=== PATIENT | male | born 1965 | race Caucasian/White ===

== ENCOUNTER 2017-08-22 11:02 | Day surgery (SDC) | payer BC ==
[2017-08-19 08:32] VITALS: BMI 35.8
[~2017-08-22 11:02] MED LIST: LACTATED RINGERS 1,000 ML IV SCH
[2017-08-22] MEDS ORDERED: LIDOCAINE 1% 20 ML VIAL (10MG/ML) FOR IV START INTRADERMA ONE (12:01)
[2017-08-22 12:15] VITALS: RESP 16; TEMP 98
[2017-08-22 12:25] LABS: Glucose,Whole Blood 113 mg/dL (75-99)
[2017-08-22] MEDS ORDERED: PROPOFOL 10 MG/ML 20 ML VIAL IV ONE (12:30)
--- NOTE | 2017-08-22 12:55 | P.PCN ---
Date of Procedure: 08/22/17 Procedure(s) Performed: Procedure: Total colonoscopy. Preoperative diagnosis: Screening for neoplasia. Postoperative diagnosis: Exam within normal limits. Preparation: HalfLytely prep. Sedation: Was provided by anesthesia. Brief clinical history: The patient is a 52-year-old male who is scheduled for this evaluation for screening for neoplasia age being his risk factor. No family history of colon cancer. He has no abdominal complaints, bleeding or anemia. This would be his first colonoscopy. Procedure: With the patient on his left lateral decubitus position and after informed consent and adequate sedation, the perianal area was inspected and it did not show any fissures or fistulas. There were no masses felt on digital rectal examination. The Olympus CFQ 160L video colonoscope was then inserted in the rectum in the usual fashion and advanced to the cecum. The mucosa appeared healthy. No polyps or tumors were seen or any obvious diverticular disease or other pathology. I retroflexed the endoscope in the rectum before the endoscope was withdrawn. The patient tolerated the procedure well. Plan: The patient was reassured. He will follow up with you as planned and I recommended repeat exam in 10 years.
[2017-08-22 13:20] VITALS: BP 129/84; PULSE 74
== END 2017-08-22 13:38 | disposition home or self-care (01) ==
LOC: ORWHC2ENDO 11:02
DX: Z12.11 Encounter for screening for malignant neoplasm of colon (principal); I10 Essential (primary) hypertension; F17.200 Nicotine dependence, unspecified, uncomplicated
CPT/HCPCS: J2704; G0121

== ENCOUNTER 2019-06-28 16:20 | Emergency (ER) | payer BC ==
[2019-06-28] MEDS ORDERED: SODIUM CHLORIDE 0.9% 1,000 ML IV STA (18:08)
[2019-06-28] MEDS ORDERED: KETOROLAC 30 MG/ML 1 ML VIAL IVP STA (18:08)
--- NOTE | 2019-06-28 18:13 | ED ---
Abdominal Pain HPI - General Chief Complaint: Abdominal Pain Stated Complaint: Kidney stone Time Seen by Provider: 06/28/19 17:58 Source: patient Mode of arrival: ambulatory Limitations: no limitations - History of Present Illness Initial Comments: Patient is a 53-year-old male presenting to the emergency Department with complaints of right-sided flank pain that started yesterday. Patient states the pain started suddenly and has been sharp and stabbing in nature. He then describes right-sided groin pain started today. That pain is also been sharp in nature. He denies history of kidney stones. He denies any swelling of his scrotum or trauma. He denies any abdominal surgeries. He denies fever, chills, nausea, vomiting. He states she's never felt this Pain before. He denies hematuria. He has no other complaints at this time. He has no other pertinent past medical history. Upon arrival to the ER, his vital signs are stable. - Related Data Home Medications Medication Instructions Recorded Confirmed No Known Home Medications 08/19/17 08/22/17 Allergies Allergy/AdvReac Type Severity Reaction Status Date / Time No Known Allergies Allergy Verified 08/22/17 12:02 Review of Systems ROS Statement: Those systems with pertinent positive or pertinent negative responses have been documented in the HPI. ROS Other: All systems not noted in ROS Statement are negative. Past Medical History Past Medical History: No Reported History Additional Past Medical History / Comment(s): STATES EPISODE OF ELEVATED BLOOD SUGAR- HE QUIT DRINKING [place] DEW AND LOST 28 #-HAS NOT HAD BLOOD SUGAR RECHECKED AND DID NOT FILL MEDICATION PRESCRIPTION AT THAT TIME. History of Any Multi-Drug Resistant Organisms: None Reported Past Surgical History: No Surgical Hx Reported Additional Past Surgical History / Comment(s): WISDOM TEETH Additional Past Anesthesia/Blood Transfusion Reaction / Comment(s): NO ANESTHESIA HX Past Psychological History: No Psychological Hx Reported Smoking Status: Current every day smoker Past Alcohol Use History: Occasional Past Drug Use History: None Reported - Past Family History Mother Family Medical History: No Reported History General Exam - General Exam Comments Initial Comments: GENERAL: Well-appearing, well-nourished and in no acute distress. HEAD: Atraumatic, normocephalic. EYES: Pupils equal round and reactive to light, extraocular movements intact, sclera anicteric, conjunctiva are normal. ENT: TMs normal, nares patent, oropharynx clear without exudates. Moist mucous membranes. NECK: Normal range of motion, supple without lymphadenopathy or JVD. LUNGS: Breath sounds clear to auscultation bilaterally and equal. No wheezes rales or rhonchi. HEART: Regular rate and rhythm without murmurs, rubs or gallops. ABDOMEN: Mild right flank pain, right-sided abdominal pain, mild right groin pain. No right lower quadrant. Soft, normoactive bowel sounds. No guarding, no rebound. No masses appreciated. : Normal external exam, no swelling. Mild right groin pain EXTREMITIES: Normal range of motion, no pitting or edema. No clubbing or cyanosis. NEUROLOGICAL: Normal speech, normal gait. PSYCH: Normal mood, normal affect. SKIN: Warm, Dry, normal turgor, no rashes or lesions noted. Limitations: no limitations Course Vital Signs 06/28/19 16:48 Temperature 98.7 F Pulse Rate 73 Respiratory 20 Rate O2 Sat by Pulse 96 Oximetry Medical Decision Making - Medical Decision Making Patient is a 53-year-old male presenting with right-sided flank pain that sta rted yesterday. Also complaining of right groin pain. Vital signs are stable upon arrival. Lab work reveals slightly elevated bilirubin at 1.6, no other acute findings. Urine has 4+ glucose, no signs of infection. CT the abdomen shows a right hepatic lobe lesion, mild hepatomegaly, cholelithiasis without acute cholecystitis. No renal stones seen. She was given fluids, pain control and reports improvement in his symptoms. I discussed these findings with the patient. His symptoms are most likely related to biliary colic. Patient is stable for discharge at this time. Patient will be given referral to GI specialist. We discussed diet recommendations and increasing his fluid intake. He is in agreement with this plan of care. Patient will be sent home with a starter pack of tramadol. Return parameters were discussed with the patient he verbalizes understanding. Case discussed with Dr. Samayoa. - Lab Data Result diagrams: 06/28/19 18:28 06/28/19 18:28 Lab Results 06/28/19 06/28/19 06/28/19 Range/Units 18:28 18:28 18:28 WBC 6.6 (3.8-10.6) k/uL RBC 5.28 (4.30-5.90) m/uL Hgb 15.9 (13.0-17.5) gm/dL Hct 46.0 (39.0-53.0) % MCV 87.2 (80.0-100.0) fL MCH 30.1 (25.0-35.0) pg MCHC 34.5 (31.0-37.0) g/dL RDW 12.9 (11.5-15.5) % Plt Count 152 (150-450) k/uL Neutrophils % 60 % Lymphocytes % 26 % Monocytes % 7 % Eosinophils % 2 % Basophils % 2 % Neutrophils # 4.0 (1.3-7.7) k/uL Lymphocytes # 1.7 (1.0-4.8) k/uL Monocytes # 0.4 (0-1.0) k/uL Eosinophils # 0.1 (0-0.7) k/uL Basophils # 0.1 (0-0.2) k/uL PT 11.7 (9.0-12.0) sec INR 1.1 (<1.2) APTT 23.8 (22.0-30.0) sec Sodium 136 L (137-145) mmol/L Potassium 4.2 (3.5-5.1) mmol/L Chloride 100 (98-107) mmol/L Carbon Dioxide 25 (22-30) mmol/L Anion Gap 11 mmol/L BUN 16 (9-20) mg/dL Creatinine 0.73 (0.66-1.25) mg/dL Est GFR (CKD-EPI)AfAm >90 (>60 ml/min/1.73 sqM) Est GFR (CKD-EPI)NonAf >90 (>60 ml/min/1.73 sqM) Glucose 154 H (74-99) mg/dL Calcium 8.8 (8.4-10.2) mg/dL Total Bilirubin 1.6 H (0.2-1.3) mg/dL AST 51 (17-59) U/L ALT 75 H (4-49) U/L Alkaline Phosphatase 59 (38-126) U/L Total Protein 7.5 (6.3-8.2) g/dL Albumin 4.4 (3.5-5.0) g/dL Urine Color Urine Appearance (Clear) Urine pH (5.0-8.0) Ur Specific [place] (1.001-1.035) Urine Protein (Negative) Urine Glucose (UA) (Negative) Urine Ketones (Negative) Urine Blood (Negative) Urine Nitrite (Negative) Urine Bilirubin (Negative) Urine Urobilinogen (<2.0) mg/dL Ur Leukocyte Esterase (Negative) Urine RBC (0-5) /hpf Urine WBC (0-5) /hpf Ur Squamous Epith Cells (0-4) /hpf Urine Mucus (None) /hpf 06/28/19 Range/Units 18:38 WBC (3.8-10.6) k/uL RBC (4.30-5.90) m/uL Hgb (13.0-17.5) gm/dL Hct (39.0-53.0) % MCV (80.0-100.0) fL MCH (25.0-35.0) pg MCHC (31.0-37.0) g/dL RDW (11.5-15.5) % Plt Count (150-450) k/uL Neutrophils % % Lymphocytes % % Monocytes % % Eosinophils % % Basophils % % Neutrophils # (1.3-7.7) k/uL Lymphocytes # (1.0-4.8) k/uL Monocytes # (0-1.0) k/uL Eosinophils # (0-0.7) k/uL Basophils # (0-0.2) k/uL PT (9.0-12.0) sec INR (<1.2) APTT (22.0-30.0) sec Sodium (137-145) mmol/L Potassium (3.5-5.1) mmol/L Chloride (98-107) mmol/L Carbon Dioxide (22-30) mmol/L Anion Gap mmol/L BUN (9-20) mg/dL Creatinine (0.66-1.25) mg/dL Est GFR (CKD-EPI)AfAm (>60 ml/min/1.73 sqM) Est GFR (CKD-EPI)NonAf (>60 ml/min/1.73 sqM) Glucose (74-99) mg/dL Calcium (8.4-10.2) mg/dL Total Bilirubin (0.2-1.3) mg/dL AST (17-59) U/L ALT (4-49) U/L Alkaline Phosphatase (38-126) U/L Total Protein (6.3-8.2) g/dL Albumin (3.5-5.0) g/dL Urine Color Yellow Urine Appearance Clear (Clear) Urine pH 6.0 (5.0-8.0) Ur Specific [place] 1.029 (1.001-1.035) Urine Protein 1+ H (Negative) Urine Glucose (UA) 4+ H (Negative) Urine Ketones Negative (Negative) Urine Blood Trace H (Negative) Urine Nitrite Negative (Negative) Urine Bilirubin Negative (Negative) Urine Urobilinogen 4.0 (<2.0) mg/dL Ur Leukocyte Esterase Negative (Negative) Urine RBC 1 (0-5) /hpf Urine WBC 1 (0-5) /hpf Ur Squamous Epith Cells 1 (0-4) /hpf Urine Mucus Few H (None) /hpf Disposition Clinical Impression: Biliary colic, Abdominal pain Disposition: HOME SELF-CARE Condition: Stable Instructions (If sedation given, give patient instructions): Biliary Colic (ED) Additional Instructions: Please return to the Emergency Department if symptoms worsen or any other concerns. May take Tylenol or Motrin for symptom control. Start with clear liquid diet. Limit fatty foods. Increase water intake. Follow up with GI specialist as discussed. Is patient prescribed a controlled substance at d/c from ED?: No Referrals: Tiffanie Bhagat MD [Primary Care Provider] - 1-2 days Essie Bowling MD [STAFF PHYSICIAN] - 1-2 days
[2019-06-28 18:49] LABS: ALT 75 U/L (4-49); AST 51 U/L (17-59); African American GFR (CKD) >90 (>60 ml/min/1.73 sqM); Albumin 4.4 g/dL (3.5-5.0); Alkaline Phosphatase 59 U/L (38-126); Anion Gap 11 mmol/L; Basophils # (A) 0.1 k/uL (0-0.2); Basophils % (A) 2 %; Blood Urea Nitrogen 16 mg/dL (9-20); Calcium 8.8 mg/dL (8.4-10.2); Carbon Dioxide 25 mmol/L (22-30); Chloride 100 mmol/L (98-107); Eosinophils # (A) 0.1 k/uL (0-0.7); Eosinophils % (A) 2 %; Glucose 154 mg/dL (74-99); HGB 15.9 gm/dL (13.0-17.5); Lymphocytes # (A) 1.7 k/uL (1.0-4.8); Lymphocytes % (A) 26 %; MCH 30.1 pg (25.0-35.0); MCHC 34.5 g/dL (31.0-37.0); MCV 87.2 fL (80.0-100.0); Mean Platelet Volume 8.8; Monocytes # (A) 0.4 k/uL (0-1.0); Monocytes % (A) 7 %; Neutrophils % (A) 60 %; Non-African American GFR(CKD) >90 (>60 ml/min/1.73 sqM); Platelet Count 152 k/uL (150-450); Potassium 4.2 mmol/L (3.5-5.1); RBC 5.28 m/uL (4.30-5.90); RDW 12.9 % (11.5-15.5); Sodium 136 mmol/L (137-145); Total Bilirubin 1.6 mg/dL (0.2-1.3); Total Protein 7.5 g/dL (6.3-8.2); WBC 6.6 k/uL (3.8-10.6)
[2019-06-28 18:54] LABS: Appearance,Urine Clear (Clear); Bilirubin,Urine Negative (Negative); Blood,Urine Trace (Negative); Color,Urine Yellow; Glucose,Urine (UA) 4+ (Negative); Ketones,Urine Negative (Negative); Leukocyte Esterase,Urine Negative (Negative); Mucus,Urine Few /hpf; Nitrite,Urine Negative (Negative); Protein,Urine 1+ (Negative); RBC,Urine 1 /hpf (0-5); Specific Gravity,Urine 1.029 (1.001-1.035); Squamous Epithelial Cell,Urine 1 /hpf (0-4); WBC,Urine 1 /hpf (0-5)
[2019-06-28 19:03] LABS: INR 1.1 (<1.2); Partial Thromboplastin Time 23.8 sec (22.0-30.0); Prothrombin Time 11.7 sec (9.0-12.0)
[2019-06-28] MEDS ORDERED: MORPHINE SULFATE 4 MG/ML SYRINGE IVP STA (19:13)
--- NOTE | 2019-06-28 19:58 | CT ---
EXAMINATION TYPE: CT abdomen pelvis wo con DATE OF EXAM: 06/28/2019 COMPARISON: There are no comparison imaging studies. HISTORY: Right sided flank pain. CT DLP: 1115.1 mGycm Automated exposure control for dose reduction was used. TECHNIQUE: Helical acquisition of images was performed from the lung bases through the pelvis. FINDINGS: Within the limitations of noncontrast CT the following observations are made. LUNG BASES: No acute findings. LIVER: No definite acute findings. However, 2 cm right hepatic hypodense lesion noted laterally, cent ered just below the level of the shaista hepatis. Also, there is mild-plus hepatomegaly. BILIARY: Cholelithiasis is noted. Gallbladder otherwise unremarkable. No extrahepatic or intrahepatic biliary dilation. PANCREAS: No significant necrotic or pancreatic ductal abnormality is seen. SPLEEN: No focal abnormality. Mild splenomegaly noted. ADRENALS: No significant abnormality is seen. KIDNEYS: No hydronephrosis or hydroureter or calcifications, and no soft tissue mass. Multifocal renal cystic masses are noted, likely benign and greater on the right. PERITONEAL CAVITY: No pneumoperitoneum and no peritoneal fluid. RETROPERITONEAL ADENOPATHY: None visualized REPRODUCTIVE ORGANS: No significant abnormality is seen URINARY BLADDER: No significant abnormality is seen. PELVIC ADENOPATHY: None visualized. OSSEOUS STRUCTURES: No significant abnormality is seen. BOWEL: No significant abnormality is seen. IMPRESSION: NEGATIVE FOR RIGHT OBSTRUCTIVE UROPATHY OR OTHER CT CORRELATE FOR THE PATIENT'S RIGHT-VIRGIE ED FLANK PAIN. Incidental: Bilateral renal findings and right hepatic lobe finding, with mild plus hepatosplenomegal y. Nonurgent abdomen/renal MRI without and with contrast is advised to further characterize these fin dings.
[2019-06-28] MEDS ORDERED: traMADol 50 MG STARTER PACK 3 TAB BTL PO STA (20:21)
[2019-06-28 21:07] VITALS: BP 125/81; PULSE 72; RESP 18; TEMP 97.9
== END 2019-06-28 21:07 | disposition home or self-care (01) ==
LOC: EC 16:20
DX: K80.50 Calculus of bile duct without cholangitis or cholecystitis without obstruction (principal); R16.0 Hepatomegaly, not elsewhere classified; F17.200 Nicotine dependence, unspecified, uncomplicated
CPT/HCPCS: 36415; 80053; 85025; 85610; 85730; 81001; 74176; 99284; 96374; 96375; 96361 ×2; J2270; J1885

== ENCOUNTER → 2019-08-11 | Outpatient (CLI) | payer BC ==
--- NOTE | 2019-08-12 05:36 | MR ---
EXAMINATION TYPE: MR liver wo/w con DATE OF EXAM: 08/11/2019 COMPARISON: HISTORY: Lesion of liver Flank pain CONTRAST: Standard multiplanar, multisequence MRI departmental protocol utilizing 11 mL intravenous Gadavist ga dolinium contrast. There is sharply marginated rounded 17 x 12 mm high signal focus in the lateral aspect right lobe louisa er consistent with simple hepatic cyst. This corresponds to the hypodense area on the recent CT scan in the right lobe of the liver. There are bilateral renal cortical cysts. The largest is right kidney posterior and lateral and measu res 3.3 cm. There is no evidence of a solid renal mass. There is no hydronephrosis. The spleen is intact. Stomach appears normal. There is no high-grade mass. The pancreatic duct appear s normal. There are tiny cysts in the tail of the pancreas consistent with tiny pseudocysts that jocelyn ure 2 to 3 mm. There are small filling defects in the dependent gallbladder. The bile ducts are not d ilated. There is no adrenal mass. There is no evidence of solid pancreatic mass. The contrast images show no pathologic enhancement. There is no retroperitoneal adenopathy. There is no ascites. There is no evidence of pleural fluid. D elayed images show no pathologic enhancement. There is patency of the portal venous system. IMPRESSION: Simple cyst in the lateral right lobe of the liver. Additional smaller cysts in the anterior left lob e and right lobe of the liver measure up to 1 cm. Multiple bilateral renal cortical cysts no evidence of a solid renal mass. Cholelithiasis.
== END | disposition home or self-care (01) ==
LOC: RADMRIMAIN 11:59
PROVIDERS: ATTEND Internal Medicine Gastroenterology
DX: K76.89 Other specified diseases of liver (principal); K80.20 Calculus of gallbladder without cholecystitis without obstruction
CPT/HCPCS: 74183; A9585

== ENCOUNTER → 2019-08-14 | Outpatient (CLI) | payer BC ==
[2019-08-14 17:46] LABS: Basophils % (A) 0 %; Eosinophils # (A) 0.3 k/uL (0-0.7); Eosinophils % (A) 3 %; HCT 51.6 % (39.0-53.0); HGB 17.4 gm/dL (13.0-17.5); Lymphocytes # (A) 2.9 k/uL (1.0-4.8); Lymphocytes % (A) 30 %; MCH 30.4 pg (25.0-35.0); MCHC 33.7 g/dL (31.0-37.0); MCV 90.3 fL (80.0-100.0); Mean Platelet Volume 8.8; Monocytes # (A) 0.5 k/uL (0-1.0); Monocytes % (A) 5 %; Neutrophils # (A) 5.9 k/uL (1.3-7.7); Neutrophils % (A) 60 %; Platelet Count 192 k/uL (150-450); RBC 5.71 m/uL (4.30-5.90); WBC 9.9 k/uL (3.8-10.6)
[2019-08-14 23:43] LABS: African American GFR (CKD) 98.5 (60.0-200.0); Albumin 4.7 g/dL (3.80-4.90); Albumin/Globulin Ratio 1.96 (1.60-3.17); Anion Gap 8.2 mmol/L (4.00-12.00); Bilirubin, Conjugated 0.3 mg/dL (0.20-0.40); Bilirubin,Unconjugated 0.3 mg/dL; Calcium 9.4 mg/dL (8.7-10.3); Carbon Dioxide 27.8 mmol/L (21.6-31.8); Globulin 2.4 g/dL (1.6-3.3); Non-African American GFR(CKD) 84.9 (60.0-200.0); Potassium 4.5 mmol/L (3.5-5.5); Total Bilirubin 0.6 mg/dL (0.3-1.2); Total Protein 7.1 g/dL (6.2-8.2)
== END | disposition home or self-care (01) ==
LOC: LABWHC1 16:34
PROVIDERS: ATTEND Internal Medicine Gastroenterology
DX: K76.9 Liver disease, unspecified (principal); R94.5 Abnormal results of liver function studies
CPT/HCPCS: 36415; 80053; 82248; 85025

== ENCOUNTER 2023-10-07 16:46 | Emergency (ER) | payer BC ==
--- NOTE | 2023-10-07 17:20 | ED ---
General Adult HPI - General Chief complaint: Recheck/Abnormal Lab/Rx Stated complaint: abd pain-gallbladder Time Seen by Provider: 10/07/23 17:06 Source: patient, RN notes reviewed, old records reviewed Mode of arrival: ambulatory Limitations: no limitations - History of Present Illness Initial comments: 58-year-old male presenting with chief complaint of abdominal pain, concern for gallbladder issues. Patient states that over the past several months he has had a few episodes of epigastric abdominal pain associated with vomiting. He has not had any testing to date. He had an episode this morning lasting several hours. There was associated nausea without vomiting. No fever. Pain is resolved at this time. He denies chest pain and states this was epigastric. - Related Data Home Medications Medication Instructions Recorded Confirmed No Known Home Medications 08/19/17 08/22/17 Allergies Allergy/AdvReac Type Severity Reaction Status Date / Time No Known Allergies Allergy Verified 10/07/23 16:49 Review of Systems ROS Statement: Those systems with pertinent positive or pertinent negative responses have been documented in the HPI. ROS Other: All systems not noted in ROS Statement are negative. Past Medical History Past Medical History: No Reported History Additional Past Medical History / Comment(s): STATES EPISODE OF ELEVATED BLOOD SUGAR- HE QUIT DRINKING [place] DEW AND LOST 28 #-HAS NOT HAD BLOOD SUGAR RECHECKED AND DID NOT FILL MEDICATION PRESCRIPTION AT THAT TIME. History of Any Multi-Drug Resistant Organisms: None Reported Past Surgical History: No Surgical Hx Reported Additional Past Surgical History / Comment(s): WISDOM TEETH Additional Past Anesthesia/Blood Transfusion Reaction / Comment(s): NO ANESTHESIA HX Past Psychological History: No Psychological Hx Reported Smoking Status: Current every day smoker Past Alcohol Use History: Occasional Past Drug Use History: None Reported - Past Family History Mother Family Medical History: No Reported History General Exam Limitations: no limitations General appearance: alert, in no apparent distress Head exam: Present: atraumatic, normocephalic Eye exam: Present: normal appearance, PERRL ENT exam: Present: normal exam Neck exam: Present: normal inspection. Absent: tenderness, meningismus Respiratory exam: Present: normal lung sounds bilaterally. Absent: respiratory distress, wheezes Cardiovascular Exam: Present: regular rate, normal rhythm GI/Abdominal exam: Present: soft, distended. Absent: tenderness, guarding, rebound Extremities exam: Present: normal inspection, normal capillary refill Neurological exam: Present: alert, oriented X3, CN II-XII intact. Absent: motor sensory deficit Psychiatric exam: Present: normal affect, normal mood Skin exam: Present: warm, dry, intact, normal color Course Vital Signs 10/07/23 10/07/23 10/07/23 16:47 17:49 18:00 Temperature 98.2 F Pulse Rate 88 62 62 Respiratory 18 17 18 Rate Blood Pressure 171/74 140/80 140/80 O2 Sat by Pulse 98 97 97 Oximetry - Reevaluation(s) Reevaluation #1: 10/07/23 [address] Mckeon covering for general surgery, she has arranged outpatient follow-up with this patient. Medical Decision Making - Medical Decision Making Was pt. sent in by a medical professional or institution (, PA, VOTING MACHINE MECHANIC, urgent care, hospital, or long term...) When possible be specific @ -No Did you speak to anyone other than the patient for history (EMS, parent, family, police, friend...)? What history was obtained from this source @ -No Did you review nursing and triage notes (agree or disagree)? Why? @ -I reviewed and agree with nursing and triage notes Were old charts reviewed (outside hosp., previous admission, EMS record, old EKG, old radiological studies, urgent care reports/EKG's, long term records)? Report findings @ -No old charts were reviewed Differential Abdominal Pain Men: Appendicitis, cholecystitis, diverticulosis, ischemic bowel, pancreatitis, hepatitis, UTI, gastroenteritis, AAA, incarcerated hernia, bowel obstruction, constipation, inflammatory bowel, hepatitis, peptic ulcer disease, splenic infarction, perforated viscus, testicular torsion, this is not meant to be an all-inclusive list EKG interpreted by me (3pts min.). @EKG: Sinus rhythm low voltage, rate of 71, NJ interval 152, QRS duration 110, QTc [address] segment elevation, incomplete right bundle branch block X-rays interpreted by me (1pt min.). @ -None done CT interpreted by me (1pt min.). @ -None done U/S interpreted by me (1pt. min.). @ -Ultrasound showing cholelithiasis What testing was considered but not performed or refused? (CT, X-rays, U/S, labs)? Why? @ -None What meds were considered but not given or refused? Why? @ -None Did you discuss the management of the patient with other professionals (professionals i.e. , PA, VOTING MACHINE MECHANIC, lab, RT, psych nurse, social media content manager, cyber operator, teacher, security officers and guards, rn case manager)? Give summary @Dr. Larose Was smoking cessation discussed for >3mins.? @ -No Was critical care preformed (if so, how long)? @ -No Were there social determinants of health that impacted care today? How? (Homelessness, low income, unemployed, alcoholism, drug addiction, transpo rtation, low edu. Level, literacy, decrease access to med. care, assisted, rehab)? @ -No Was there de-escalation of care discussed even if they declined (Discuss DNR or withdrawal of care, Hospice)? DNR status @ -No What co-morbidities impacted this encounter? (DM, HTN, Smoking, COPD, CAD, Cancer, CVA, ARF, Chemo, Hep., AIDS, mental health diagnosis, sleep apnea, morbid obesity)? @ -None Was patient admitted / discharged? Hospital course, mention meds given and route, prescriptions, significant lab abnormalities, going to OR and other pertinent info. @58-year-old male with epigastric abdominal pain currently resolved. Has normal CBC, normal CMP, negative troponin, normal EKG. Ultrasound does show gallstones. Patient evaluated by general surgery mehul Larose in the emergency department who has arranged for outpatient follow-up. Undiagnosed new problem with uncertain prognosis? @ -No Drug Therapy requiring intensive monitoring for toxicity (Heparin, Nitro, Insulin, Cardizem)? @ -No Were any procedures done? @ -No Diagnosis/symptom? @ -Biliary colic, symptomatic gallstones Acute, or Chronic, or Acute on Chronic? @ -Acute Uncomplicated (without systemic symptoms) or Complicated (systemic symptoms)? @ -Default Side effects of treatment? @ -No Exacerbation, Progression, or Severe Exacerbation? @ -No Poses a threat to life or bodily function? How? (Chest pain, [place], ND, pneumonia, PE, COPD, DKA, ARF, appy, cholecystitis, CVA, Diverticulitis, Homicidal, Suicidal, threat to staff... and all critical care pts) @ -No - Lab Data Result diagrams: 10/07/23 17:14 10/07/23 17:14 Lab Results 10/07/23 10/07/23 10/07/23 Range/Units 17:14 17:14 17:14 WBC 9.8 (3.8-10.6) k/uL RBC 5.64 (4.30-5.90) m/uL Hgb 17.3 (13.0-17.5) gm/dL Hct 51.5 (39.0-53.0) % MCV 91.4 (80.0-100.0) fL MCH 30.7 (25.0-35.0) pg MCHC 33.6 (31.0-37.0) g/dL RDW 13.1 (11.5-15.5) % Plt Count 182 (150-450) k/uL MPV 8.5 Neutrophils % 67 % Lymphocytes % 24 % Monocytes % 5 % Eosinophils % 2 % Basophils % 1 % Neutrophils # 6.6 (1.3-7.7) k/uL Lymphocytes # 2.4 (1.0-4.8) k/uL Monocytes # 0.5 (0-1.0) k/uL Eosinophils # 0.2 (0-0.7) k/uL Basophils # 0.1 (0-0.2) k/uL PT 11.9 (10.0-12.5) sec INR 1.1 (<1.2) APTT 23.9 (22.0-30.0) sec Sodium 137 (137-145) mmol/L Potassium 4.1 (3.5-5.1) mmol/L Chloride 109 H (98-107) mmol/L Carbon Dioxide 20 L (22-30) mmol/L Anion Gap 8 mmol/L BUN 18 (9-20) mg/dL Creatinine 0.73 (0.66-1.25) mg/dL Est GFR (CKD-EPI)AfAm >90 (>60 ml/min/1.73 sqM) Est GFR (CKD-EPI)NonAf >90 (>60 ml/min/1.73 sqM) Glucose 197 H (74-99) mg/dL Plasma Lactic Acid [place] (0.7-2.0) mmol/L Calcium 9.1 (8.4-10.2) mg/dL Total Bilirubin 0.6 (0.2-1.3) mg/dL AST 33 (17-59) U/L ALT 42 (4-49) U/L Alkaline Phosphatase 56 (38-126) U/L Troponin I (0.000-0.034) ng/mL Total Protein 7.0 (6.3-8.2) g/dL Albumin 4.2 (3.5-5.0) g/dL Amylase 56 (30-110) U/L Lipase 121 (23-300) U/L 10/07/23 10/07/23 Range/Units 17:14 17:14 WBC (3.8-10.6) k/uL RBC (4.30-5.90) m/uL Hgb (13.0-17.5) gm/dL Hct (39.0-53.0) % MCV (80.0-100.0) fL MCH (25.0-35.0) pg MCHC (31.0-37.0) g/dL RDW (11.5-15.5) % Plt Count (150-450) k/uL MPV Neutrophils % % Lymphocytes % % Monocytes % % Eosinophils % % Basophils % % Neutrophils # (1.3-7.7) k/uL Lymphocytes # (1.0-4.8) k/uL Monocytes # (0-1.0) k/uL Eosinophils # (0-0.7) k/uL Basophils # (0-0.2) k/uL PT (10.0-12.5) sec INR (<1.2) APTT (22.0-30.0) sec Sodium (137-145) mmol/L Potassium (3.5-5.1) mmol/L Chloride (98-107) mmol/L Carbon Dioxide (22-30) mmol/L Anion Gap mmol/L BUN (9-20) mg/dL Creatinine (0.66-1.25) mg/dL Est GFR (CKD-EPI)AfAm (>60 ml/min/1.73 sqM) Est GFR (CKD-EPI)NonAf (>60 ml/min/1.73 sqM) Glucose (74-99) mg/dL Plasma Lactic Acid [place] 1.4 (0.7-2.0) mmol/L Calcium (8.4-10.2) mg/dL Total Bilirubin (0.2-1.3) mg/dL AST (17-59) U/L ALT (4-49) U/L Alkaline Phosphatase (38-126) U/L Troponin I <0.012 (0.000-0.034) ng/mL Total Protein (6.3-8.2) g/dL Albumin (3.5-5.0) g/dL Amylase (30-110) U/L Lipase (23-300) U/L Disposition Clinical Impression: Biliary colic, Cholelithiasis Disposition: HOME SELF-CARE Condition: Good Instructions (If sedation given, give patient instructions): Biliary Colic (ED), Gallstones (ED), Low Fat Diet (ED) Is patient prescribed a controlled substance at d/c from ED?: No Referrals: Tiffanie Bhagat MD [Primary Care Provider] - 1-2 days Sheri Larose MD [STAFF PHYSICIAN] - 1-2 days Time of Disposition: 19:59
[2023-10-07 17:25] VITALS: RESP 18
[2023-10-07 17:58] LABS: Basophils # (A) 0.1 k/uL (0-0.2); Basophils % (A) 1 %; Eosinophils # (A) 0.2 k/uL (0-0.7); Eosinophils % (A) 2 %; HCT 51.5 % (39.0-53.0); HGB 17.3 gm/dL (13.0-17.5); Lymphocytes # (A) 2.4 k/uL (1.0-4.8); Lymphocytes % (A) 24 %; MCH 30.7 pg (25.0-35.0); MCHC 33.6 g/dL (31.0-37.0); MCV 91.4 fL (80.0-100.0); Mean Platelet Volume 8.5; Monocytes # (A) 0.5 k/uL (0-1.0); Monocytes % (A) 5 %; Neutrophils # (A) 6.6 k/uL (1.3-7.7); Neutrophils % (A) 67 %; Platelet Count 182 k/uL (150-450); RBC 5.64 m/uL (4.30-5.90); RDW 13.1 % (11.5-15.5); WBC 9.8 k/uL (3.8-10.6)
[2023-10-07 18:08] LABS: INR 1.1 (<1.2); Partial Thromboplastin Time 23.9 sec (22.0-30.0); Prothrombin Time 11.9 sec (10.0-12.5)
[2023-10-07 18:43] LABS: ALT 42 U/L (4-49); AST 33 U/L (17-59); African American GFR (CKD) >90 (>60 ml/min/1.73 sqM); Albumin 4.2 g/dL (3.5-5.0); Alkaline Phosphatase 56 U/L (38-126); Amylase 56 U/L (30-110); Anion Gap 8 mmol/L; Blood Urea Nitrogen 18 mg/dL (9-20); Calcium 9.1 mg/dL (8.4-10.2); Carbon Dioxide 20 mmol/L (22-30); Chloride 109 mmol/L (98-107); Glucose 197 mg/dL (74-99); Lipase 121 U/L (23-300); Non-African American GFR(CKD) >90 (>60 ml/min/1.73 sqM); Potassium 4.1 mmol/L (3.5-5.1); Sodium 137 mmol/L (137-145); Total Bilirubin 0.6 mg/dL (0.2-1.3)
--- NOTE | 2023-10-07 19:19 | US ---
EXAMINATION TYPE: US gallbladder DATE OF EXAM: 10/07/2023 COMPARISON: CT, MR 2019 CLINICAL INDICATION: Male, 58 years old with history of ab pain; Abdominal pain. TECHNIQUE: Multiple sonographic images of the right upper quadrant are obtained. FINDINGS: EXAM MEASUREMENTS: Liver Length: 18.1 cm Gallbladder Wall: 0.43 cm CBD: Obscured Right Kidney: 13.3 x 6.4 x 6.0 cm HOSPITAL ADMISSIONS CLERK NOTES: Limited due to gas. Pancreas: Unable to evaluate due to gas. Portion of pancreatic head seen. Liver: Increased echogenicity and attenuation. Appears enlarged. Limited due to gas. Anechoic area compatible with small cyst seen within the right lobe: 1.2 x 1.1 x 0.9 cm. Gallbladder: *Multiple hyperechoic foci with posterior shadowing seen within, largest measures 1.3 x 1.1 x 0.9 cm. Wall appears thickened. Evidence for sonographic Alva's sign: No CBD: Obscured Right Kidney: Enlarged. Two anechoic areas seen, larger measures 4.6 x 3.6 x 4.7 cm. Findings appear compatible with simple cyst. The smaller cortical renal cyst measures 2.2 cm. IMPRESSION: 1. Mild fatty infiltration of the liver. Small cyst present 2. Cholelithiasis. Gallbladder wall thickening is present. Clinical correlation recommended for acute cholecystitis. 3. Right renal cysts
[2023-10-07 20:37] VITALS: BP 122/82; PULSE 68; TEMP 98
== END 2023-10-07 20:30 | disposition home or self-care (01) ==
LOC: EC 16:46
DX: K80.70 Calculus of gallbladder and bile duct without cholecystitis without obstruction (principal); N28.1 Cyst of kidney, acquired; K76.0 Fatty (change of) liver, not elsewhere classified; F17.200 Nicotine dependence, unspecified, uncomplicated
CPT/HCPCS: 36415; 76705; 80053; 82150; 83605; 83690; 84484; 85025; 85610; 85730; 93005; 99284

== ENCOUNTER 2023-12-22 09:57 | Day surgery (SDC) | payer BC ==
[2023-12-19 14:41] VITALS: BMI 35.5
--- NOTE | 2023-12-22 08:22 | P.GSHP ---
History of Present Illness H&P Date: 12/22/23 CHIEF COMPLAINT: Cholecystitis HISTORY OF PRESENT ILLNESS: The patient is a 58-year-old male who presents with history of epigastric including right upper quadrant abdominal pain. He underwent diagnostic studies for the gallbladder. Separately his clinical picture was consistent with cholecystitis. Now he presents for surgical intervention. PAST MEDICAL HISTORY: Please see list PAST SURGICAL HISTORY: Please see list MEDICATIONS: Please see list ALLERGIES: Denies. SOCIAL HISTORY: No illicit drug use or recent tobacco use FAMILY HISTORY: Pertinent for gallbladder disease REVIEW OF ORGAN SYSTEMS: CONSTITUTIONAL: No reports of fevers or chills. HEENT: Denies any troubles with the vision or hearing. ENDOCRINE: No reports of hypothyroidism. No diabetes. RESPIRATORY: No recent pneumonias. CARDIOVASCULAR: Denies chest pain or palpitations GI: No blood in stools or constipation. MUSCULOSKELETAL: Has occasional joint pain including back pain. NEURO: No seizure disorders or headaches. No recent stroke. PSYCH: No depression or suicidal ideation. HEMATOLOGIC: No personal or family history of DVTs or pulmonary emboli. PHYSICAL EXAM: VITAL SIGNS: Afebrile vital signs stable GENERAL: Well-developed pleasant male in no acute distress. HEENT: No scleral icterus. Extraocular movements grossly intact. Moist buccal mucosa. NECK: Supple without lymphadenopathy. CHEST: Unlabored respirations. Equal bilateral excursions. CARDIOVASCULAR: Regular rate regular rhythm rhythm. Distal 2+ pulses. ABDOMEN: Soft, nondistended. Tender along the epigastrium and right upper quadrant. MUSCULOSKELETAL: No clubbing, cyanosis, or edema. NEURO : No focal or lateralizing signs. Cranial nerves II-12 within normal limits. PSYCH: Alert and oriented to person, place and time. SKIN: Well perfused. Good skin turgor. ASSESSMENT: 1. Epigastric and right upper quadrant abdominal pain 2. Chronic cholecystitis PLAN: 1. Will need a robotic cholecystectomy possible open. Benefits and risks were described. 2. Heparin for DVT prophylaxis 5000 units. 3. Antibiotic prophylaxis. 4. CBC and CMP on day of procedure 5. Non-narcotic pre and post op pain management reviewed. 6. Indocyanine green for biliary imaging. Past Medical History Past Medical History: No Reported History Additional Past Medical History / Comment(s): STATES EPISODE OF ELEVATED BLOOD SUGAR- HE QUIT DRINKING [place] DEW AND LOST 28 #-HAS NOT HAD BLOOD SUGAR RECHECKED AND DID NOT FILL MEDICATION PRESCRIPTION AT THAT TIME. History of Any Multi-Drug Resistant Organisms: None Reported Past Surgical History: No Surgical Hx Reported Additional Past Surgical History / Comment(s): WISDOM TEETH, roof of mouth repaired after an accident at age 5. Past Anesthesia/Blood Transfusion Reactions: No Reported Reaction Additional Past Anesthesia/Blood Transfusion Reaction / Comment(s): NO ANESTHESIA HX Smoking Status: Current every day smoker - Past Family History Mother Family Medical History: No Reported History Father Family Medical History: Deep Vein Thrombosis (DVT) Medications and Allergies Home Medications Medication Instructions Recorded Confirmed Type No Known Home Medications 08/19/17 12/19/23 History Allergies Allergy/AdvReac Type Severity Reaction Status Date / Time No Known Allergies Allergy Verified 12/19/23 14:26
[~2023-12-22 09:57] MED LIST changes: +HYDROmorphone 0.5 MG/0.5 ML SYRINGE IVP PRN; +INDOCYANINE GREEN 25 MG VIAL IV STA; -LACTATED RINGERS 1,000 ML IV SCH; +LIDOCAINE 1% (10MG/ML) FOR IV START INTRADERMA PRN; +ONDANSETRON 4 MG/2 ML VIAL IVP PRN; +droPERidol 5 MG/2 ML VIAL IVP PRN
[2023-12-22] MEDS: IV FLUID CONTINUATION 1,000 ML IV ONE (10:15)
[2023-12-22] MEDS: LACTATED RINGERS 1,000 ML IV SCH (10:39)
[2023-12-22] MEDS: ONDANSETRON 4 MG/2 ML VIAL IVP ONE (10:39)
[2023-12-22] MEDS: HEPARIN SODIUM,PORCINE 5,000 UNIT/ML 1 ML VIAL SQ PRN (10:40)
[2023-12-22] MEDS: DEXAMETHASONE SOD PHOSPHATE 4 MG/ML 1 ML VIAL IV ONE (10:40)
[2023-12-22] MEDS: ACETAMINOPHEN TAB 500 MG TAB PO PRN (10:40)
[2023-12-22] MEDS: SCOPOLAMINE 1 MG/72 HR PATCH TRANSDERM ONE (10:41)
[2023-12-22] MEDS ORDERED: ROCURONIUM 10 MG/ML (5 ML VIAL) IV ONE (11:19)
[2023-12-22] MEDS ORDERED: SUCCINYLCHOLINE CHLORIDE 200 MG/10 ML VIAL IV ONE (11:19)
[2023-12-22] MEDS ORDERED: MIDAZOLAM 2 MG/2 ML VIAL ONE (11:19)
[2023-12-22] MEDS ORDERED: NEOSTIGMINE 1 MG/ML 10 ML VIAL ONE (11:19)
[2023-12-22] MEDS ORDERED: GLYCOPYRROLATE 0.2 MG/ML 2 ML VIAL ONE (11:19)
[2023-12-22] MEDS ORDERED: fentaNYL (PF) 50 MCG/ML 2 ML AMP ONE (11:19)
[2023-12-22] MEDS ORDERED: LIDOCAINE 1% INJ 10MG/ML (20 ML MDV) ONE (11:19)
[2023-12-22] MEDS ORDERED: PROPOFOL 10 MG/ML 20 ML VIAL IV ONE (11:19)
[2023-12-22] MEDS: LIDOCAINE 1%-EPI 1:100,000 20 ML VIAL SQ ONE (11:24)
[2023-12-22] MEDS: LACTATED RINGERS 1,000 ML IV ONE (12:41)
[2023-12-22 13:05] VITALS: TEMP 97
--- NOTE | 2023-12-22 13:14 | P.OP ---
Date of Procedure: 12/22/23 Description of Procedure: SURGEON: SHERI LAROSE MD PREOPERATIVE DIAGNOSES: 1. Cholecystitis due to gallstones 2. Obesity due to excess calories, BMI 35.6 3. Tobacco abuse disorder POSTOPERATIVE DIAGNOSES: 1. Cholecystitis due to gallstones 2. Obesity due to excess calories, BMI 35.6 3. Tobacco abuse disorder 4. Peritoneal adhesions, right upper quadrant 5. Moderate fatty liver disease OPERATION: 1. Robotic-assisted da Francisco Xi laparoscopic cholecystectomy, multiport with F IREFLY 2. Robotic-assisted da Francisco Xi laparoscopic lysis of adhesions ESTIMATED BLOOD LOSS: 10 mL. SPECIMENS REMOVED: Gallbladder. COMPLICATIONS: None. OPERATIVE FINDINGS: 1. Moderate and large cystic lymph node along the infundibulum dissected from cystic duct 2. Right upper quadrant adhesions requiring lysis of adhesion INDICATIONS: The patient is a 58-year-old male who presents with symptomatic gallstones with recent cholecystitis. Robotic assisted laparoscopic approach was described. Benefits and risks of the procedure including but not limited to bleeding, infection, injury to the biliary tree was described. Informed consent was obtained. DESCRIPTION OF PROCEDURE: Patient was brought to the operating room, placed in supine position. After general induction, the abdomen had been prepped and draped in standard sterile fashion. The robotic da Francisco XI system was primed. After a timeout protocol was performed, the patient had been prepped and draped in standard sterile fashion. The patient was injected with indocyanine green. A 5 mm 0 degrees laparoscopic trocar entry was performed along the left upper quadrant. The abdomen insufflated to 15 mmHg pressure which was tolerated well. Diagnostic laparoscopy demonstrated no injury to bowel viscera or mesentery. The liver surface was unremarkable. Next, two 8 mm robotic ports were placed along the right upper abdomen. The camera 8-mm port was maintained along the epigastrium. Another 8 mm port was placed along the left upper abdominal wall after exchanging the 5 mm port. Please note that the ports were placed at least 10 to 15 cm away from the target anatomy of the gallbladder. The robot was docked along the left lateral abdomen. The patient was repositioned in reverse Trendelenburg position. Using a grasper for arm 3, a grasper for arm 4, including hook cautery for arm 1, the robotic system was docked and primed as described. Instruments were interchanged by the assistant infant teacher including hook cautery, Bovie cautery and clip appliers. I had sat at the console. The gallbladder was scarred with peritoneal adhesions. Lysis of adhesions was performed to free the gallbladder from the surrounding tissues. Dome down technique was performed from the fundus toward the infundibulum. Next attention was brought to the infundibulum and cystic structures. The infundibulum and cystic duct were dissected free from surrounding tissues. The cystic duct was isolated. FIREFLY was used to identify the cystic artery and cystic structures. Next, the cystic artery was cauterized. A critical view of safety was obtained. Large PLASTIC clips were used throughout the entire case. Using a clip safety manager, 3 clips were placed at the junction of the infundibulum and cystic duct. The cystic duct was divided between clips. Electro-Bovie cautery was used to remove the gallbladder from the hepatic fossa. Hemostasis was checked and found to be adequate. The robot was undocked. I re-scrubbed into the case. Using a 10 mm Endo Catch bag via the left upper quadrant incision, the specimen was removed from the abdominal cavity. Smooth Pimentel and 0 Vicryl was used to close the defect. All pneumoperitoneum instruments were evacuated from the abdominal cavity. The incisions were reapproximated using 4-0 Monocryl in an interrupted subcuticular fashion. Fascial defects were less than 8 mm in size. Please note along the trocar sites, local anesthetic was placed as a field block prior to insertion of all instruments. Liquid glue was applied to the skin. At the end of the procedure needle, sponge, and instrument count had been verified correct by the robotic technician. The patient was transferred to postanesthesia care unit in stable condition. Intraoperative films were shared with the patient's family. Plan - Discharge Summary Discharge Rx Participant: Yes New Discharge Prescriptions: New RX: Ibuprofen [Motrin] 600 mg PO Q8HR PRN #30 tab PRN Reason: Pain Acetaminophen Tab [Tylenol Tab] 1,000 mg PO Q6HR PRN #30 tablet PRN Reason: Pain RX: Simethicone [Gas-X] 125 mg PO AC-TID PRN #20 capsule PRN Reason: Pain Discharge Medication List Acetaminophen Tab [Tylenol Tab] 1,000 mg PO Q6HR PRN #30 tablet 12/22/23 [Rx] RX: Ibuprofen [Motrin] 600 mg PO Q8HR PRN #30 tab 12/22/23 [Rx] RX: Simethicone [Gas-X] 125 mg PO AC-TID PRN #20 capsule 12/22/23 [Rx] Follow up Appointment(s)/Referral(s): Sheri Larose MD [STAFF PHYSICIAN] - 12/27/23 6:15 pm Patient Instructions/Handouts: *Surgery [facility] - (Anesthesia) Discharge Instructions Outpatient Surgery, Low Fat Diet (DC), Laparoscopic Cholecystectomy (DC) Activity/Diet/Wound Care/Special Instructions: TELEHEALTH - DR WILL CALL YOU BETWEEN 9 am to 8 pm NO LONG DRIVES OR AIRPLANE RIDES OVER 30 MINUTES FOR THE NEXT 2 WEEKS DUE TO HIGH RISK OF PULMONARY EMBOLISM/DVTs Recommend low-fat diet for the next 2 days. No lifting over 10 pounds in 2 weeks until Jan 04October shower. No bath tub soaks for two weeks until Jan 04 Diet as tolerated. Use Tylenol, simethicone and ibuprofen or Aleve scheduled for the next 24-48 hours for best pain relief. Use ice along incisions for today to prevent swelling. Discharge Disposition: HOME SELF-CARE
[2023-12-22 14:12] VITALS: RESP 18
[2023-12-22 14:35] VITALS: PULSE 72
[2023-12-22 15:27] VITALS: BP 137/62
== END 2023-12-22 15:36 | disposition home or self-care (01) ==
LOC: OR 09:57
PROVIDERS: ATTEND Surgery Plastic and Reconstructive Surgery
DX: K66.0 Peritoneal adhesions (postprocedural) (postinfection) (principal); K76.0 Fatty (change of) liver, not elsewhere classified; F17.210 Nicotine dependence, cigarettes, uncomplicated; E66.09 Other obesity due to excess calories; Z68.35 Body mass index [BMI] 35.0-35.9, adult; Z83.79 Family history of other diseases of the digestive system; Z83.2 Family history of diseases of the blood and blood-forming organs and certain disorders involving the immune mechanism
CPT/HCPCS: 47563; S2900; 88304